=== PATIENT | male | born 1940 | race Caucasian/White ===

== ENCOUNTER 2021-08-01 21:40 | Inpatient (IN) | payer OTHER ==
[2021-08-01 22:31] LABS: Urine Blood Negative (Negative); Urine Glucose Negative (Negative); Urine Protein Negative (Negative); Urine Specific Gravity 1.015 (1.005-1.030); Urine pH 5.5 (5.0-7.0)
[2021-08-01] MEDS ORDERED: AZITHROMYCIN 500 MG INJ IVPB ONE (22:39)
[2021-08-01] MEDS ORDERED: ACETAMINOPHEN 500 MG TAB ONE (22:39)
[2021-08-01] MEDS ORDERED: NA CHLORIDE 0.9% 1,000 ML ONE (22:39)
[2021-08-01] MEDS ORDERED: NA CHLORIDE 0.9% 250 ML ONE (22:39)
[2021-08-01] MEDS ORDERED: PIPERACIL/TAZO 3.375 GM VIAL IV ONE (22:40)
[2021-08-01] MEDS ORDERED: NA CHLORIDE 0.9% 100 ML IV ONE (22:40)
[2021-08-01 23:10] LABS: Absolute Lymphocytes (CBC) 1.1 K/uL (0.7-4.9); MPV 7.8 fL (7.6-11.3); RBC Red Blood Cell Count 3.78 M/uL (4.33-5.43)
[2021-08-01 23:21] LABS: Protime INR 1.08
[2021-08-01 23:34] LABS: ALT/SGPT 35 U/L (12-78); AST/SGOT 28 U/L (15-37); Albumin 3.5 g/dL (3.4-5.0); Alkaline Phosphatase 72 U/L (45-117); BUN Blood Urea Nitrogen 35 mg/dL (7-18); Bicarbonate 21 mmol/L (21-32); Bilirubin Direct 0.2 mg/dL (0-0.2); Bilirubin Total 0.5 mg/dL (0.2-1.0); Creatine Phosphokinase 78 U/L (39-308); Glomerular Filtration Rate 30 ml/min (=/>90); Glucose Level 153 mg/dL (74-106); Magnesium 1.8 mg/dL (1.8-2.4); NT PRO-BNP 140 pg/mL (<450); Potassium 4.6 mmol/L (3.5-5.1); Protein, Total 7.2 g/dL (6.4-8.2); Sodium Level 139 mmol/L (136-145); Troponin High Sensitivity 35.6 pg/mL (<58.9)
[2021-08-01 23:40] LABS: CKMB Creatine Kinase MB < 1.0 ng/mL (1.0-3.6)
--- NOTE | 2021-08-02 00:19 | EDPHYS ---
Physician Documentation [facility] Name: James Langley Age: 81 yrs Sex: Male : 1940 Arrival Date: 08/01/2021 Time: 21:41 Bed 9 Private MD: ED Physician Richard Leonardo HPI: 08/02 00:10 This 81 yrs old Male presents to ER via EMS with complaints of Weakness. kylah 00:10 The patient presents to the emergency department with weakness of the entire body, kylah generalized weakness, that is moderate. Onset: The symptoms/episode began/occurred 2 day(s) ago. Context: occurred at home. Associated signs and symptoms: Pertinent positives: chills, near-syncope, weakness. Severity of symptoms: At their worst the symptoms were mild in the emergency department the symptoms are unchanged. Patient's baseline: Neuro: alert and fully oriented. Current symptoms: confusion. The patient has experienced similar episodes in the past, several times. Historical: - Allergies: 08/01 21:51 No Known Allergies; tw5 - Immunization history:: Flu vaccine is up to date. - Social history:: Smoking status: Patient/guardian denies using tobacco, the patient reports quitting approximately 15 years ago. - Family history:: not pertinent. ROS: 08/02 00:10 Eyes: Negative for injury, pain, redness, and discharge, ENT: Negative for injury, kylah pain, and discharge, Neck: Negative for injury, pain, and swelling, Cardiovascular: Negative for chest pain, palpitations, and edema, Abdomen/GI: Negative for abdominal pain, nausea, vomiting, diarrhea, and constipation, Back: Negative for injury and pain, : Negative for injury, bleeding, discharge, and swelling, MS/Extremity: Negative for injury and deformity, Skin: Negative for injury, rash, and discoloration, Psych: Negative for depression, anxiety, suicide ideation, homicidal ideation, and hallucinations, Allergy/Immunology: Negative for hives, rash, and allergies, Endocrine: Negative for neck swelling, polydipsia, polyuria, polyphagia, and marked weight changes, Hematologic/Lymphatic: Negative for swollen nodes, abnormal bleeding, and unusual bruising. Constitutional: Positive for chills, fatigue, fever, malaise, poor PO intake. Respiratory: Positive for cough, shortness of breath. Neuro: Positive for near syncope, weakness. Exam: 00:10 Head/Face: Normocephalic, atraumatic. Eyes: Pupils equal round and reactive to light, kylah extra-ocular motions intact. Lids and lashes normal. Conjunctiva and sclera are non-icteric and not injected. Cornea within normal limits. Periorbital areas with no swelling, redness, or edema. ENT: Nares patent. No nasal discharge, no septal abnormalities noted. Tympanic membranes are normal and external auditory canals are clear. Oropharynx with no redness, swelling, or masses, exudates, or evidence of obstruction, uvula midline. Mucous membranes moist. Neck: Trachea midline, no thyromegaly or masses palpated, and no cervical lymphadenopathy. Supple, full range of motion without nuchal rigidity, or vertebral point tenderness. No Meningismus. Chest/axilla: Normal chest wall appearance and motion. Nontender with no deformity. No lesions are appreciated. Cardiovascular: Regular rate and rhythm with a normal S1 and S2. No gallops, murmurs, or rubs. Normal PMI, no JVD. No pulse deficits. Abdomen/GI: Soft, non-tender, with normal bowel sounds. No distension or tympany. No guarding or rebound. No evidence of tenderness throughout. Back: No spinal tenderness. No costovertebral tenderness. Full range of motion. Male : Normal genitalia with no discharge or lesions. Skin: Warm, dry with normal turgor. Normal color with no rashes, no lesions, and no evidence of cellulitis. MS/ Extremity: Pulses equal, no cyanosis. Neurovascular intact. Full, normal range of motion. Psych: Awake, alert, with orientation to person, place and time. Behavior, mood, and affect are within normal limits. 00:10 Constitutional: The patient appears febrile. 00:10 ECG was reviewed by the Attending Physician. 00:10 Respiratory: the patient does not display signs of respiratory distress, Respirations: no acute changes, Breath sounds: decreased breath sounds, that are mild, rhonchi, that are mild, Respiratory rate: 20 Vital Signs: 08/01 21:46 Pulse 114; Resp 20; Temp 99.4(O); Pulse Ox 97% on R/A; Weight 81.65 kg; Height 6 ft. 0 tw5 in. (182.88 cm); Pain 6/10; 22:01 BP 187 / 59; jb4 22:20 Temp 102.0(TE); [facility] 08/02 00:37 BP 136 / 76; Pulse 103; Resp 20; Temp 100.2(TE); Pulse Ox 100% on R/A; [facility] 08/01 21:46 Body Mass Index 24.41 (81.65 kg, 182.88 cm) tw5 MDM: 08/01 22:15 Patient medically screened. [facility] 08/02 00:14 Data reviewed: vital signs, nurses notes, lab test result(s), EKG, radiologic studies, [facility] CT scan, plain films. Data interpreted: front desk monitor: rate is 114 beats/min. Test interpretation: by ED physician or midlevel provider: ECG, plain radiologic studies. Counseling: I had a detailed discussion with the patient and/or guardian regarding: the historical points, exam findings, and any diagnostic results supporting the discharge/admit diagnosis, lab results, radiology results, the need for further work-up and treatment in the hospital. 08/01 22:18 Order name: Basic Metabolic Panel; Complete Time: 00:02 [facility] 08/01 21:18 Order name: CBC with Diff; Complete Time: 00:02 [facility] 08/01 21:18 Order name: LFT's; Complete Time: 00:02 [facility] 08/01 21:18 Order name: Magnesium; Complete Time: 00:02 [facility] 08/01 21:18 Order name: NT PRO-BNP; Complete Time: 00:02 [facility] 08/01 21:18 Order name: PT-INR; Complete Time: 00:02 [facility] 08/01 21:18 Order name: Troponin HS; Complete Time: 00:02 [facility] 08/01 21:18 Order name: Blood Culture Adult (2) [facility] 08/01 21:18 Order name: Lactate; Complete Time: 00:02 [facility] 08/01 21:18 Order name: Procalcitonin; Complete Time: 00:02 [facility] 08/01 21:18 Order name: Urine Culture [facility] 08/01 21:18 Order name: Flu; Complete Time: 00:02 [facility] 08/01 21:18 Order name: SARS-COV-2 RT PCR (Document "Date of Onset" if Symptomatic); Complete Time: [facility] 00:04 08/01 21:18 Order name: CK; Complete Time: 00:02 [facility] 05/21 22:18 Order name: XRAY Chest (1 view) [facility] 08/01 22:18 Order name: EKG; Complete Time: 22:20 [facility] 08/01 22:18 Order name: Cardiac monitoring; Complete Time: 23:09 [facility] 08/01 22:18 Order name: EKG - Nurse/Tech; Complete Time: 00:08 [facility] 08/01 22:18 Order name: IV Saline Lock; Complete Time: 23: [facility] 08/01 22:18 Order name: Labs collected and sent; Complete Time: 23: [facility] 08/01 22:18 Order name: O2 Per Protocol; Complete Time: 23: [facility] 08/01 22:18 Order name: O2 Sat Monitoring; Complete Time: 23: [facility] 08/01 22:18 Order name: Ckmb; Complete Time: 00:02 [facility] 08/01 22:32 Order name: Urine Dipstick-Ancillary; Complete Time: 00:02 EDMS 08/02 00:10 Order name: CT Traumagram (Head C Spine CAP wo con) [facility] 08/01 22:18 Order name: Urine Dipstick-Ancillary (obtain specimen); Complete Time: 22:31 [facility] EC:10 Rate is 108 beats/min. Rhythm is regular. QRS [place] is Normal. MA interval is normal. [facility] QRS interval is normal. QT interval is normal. No Q waves. T waves are Normal. No ST changes noted. Clinical impression: NSR w/ Non-specific ST/T Changes and No evidence of ischemia. Interpreted by me. Reviewed by me. Administered Medications: 08/01 23:08 Drug: NS 0.9% 1000 ml Route: IV; Rate: 1 bolus; Site: right antecubital; jb4 08/02 00:00 Follow up: Response: No adverse reaction; IV Status: Completed infusion; IV Intake: kylah 1000ml 08/01 23:08 Drug: Tylenol 1000 mg Route: PO; jb4 08/02 00:34 Follow up: Response: No adverse reaction; Marked relief of symptoms; Temperature is kylah decreased 08/01 23:25 Drug: Zosyn (piperacillin-tazobactam) 3.375 grams Route: IVPB; Infused Over: 60 mins; jb4 Site: right antecubital; 08/02 00:25 Follow up: Response: No adverse reaction; IV Status: Completed infusion; IV Intake: kylah 100ml 08/01 23:25 Drug: Zithromax (azithromycin) 500 mg Route: IVPB; Infused Over: 1 hrs; Site: left jb4 antecubital; 08/02 00:25 Follow up: Response: No adverse reaction; IV Status: Completed infusion; IV Intake: kylah 250ml 01:13 Drug: NS 0.9% 1000 ml Route: IV; Rate: 125 ml/hr; Site: right antecubital; jb4 Disposition Summary: 08/02/21 00:18 Hospitalization Ordered Hospitalization Status: Inpatient Admission kylah Provider: Brennan Gonzalez cha Location: Telemetry/MedSurg (Inpatient) kylah Condition: Fair kylah Problem: new kylah Symptoms: have improved kylah Bed/Room Type: Standard [facility] Room Assignment: 229(08/02/21 01:30) mw Diagnosis - Fever, unspecified kylah - Pneumonia, unspecified organism kylah - Weakness kylah - Acute kidney failure, unspecified kylah - Fall on same level, unspecified kylah - Elevated white blood cell count kylah Forms: - Medication Reconciliation Form kylah - SBAR form kylah Signatures: Dispatcher [employer] EDPrincess Chou RN RN Richard Guidry MD MD cha Bryson, James, RN RN Lilo Jeffrey tw5 Corrections: (The following items were deleted from the chart) 01: 00:18 kylah archuleta
--- NOTE | 2021-08-02 00:19 | ER ---
Nurse's Notes [facility] Name: James Langley Age: 81 yrs Sex: Male : 1940 Arrival Date: 08/01/2021 Time: 21:41 Bed 9 Private MD: Diagnosis: Fever, unspecified;Pneumonia, unspecified organism;Weakness;Acute kidney failure, unspecified;Fall on same level, unspecified;Elevated white blood cell count Presentation: 08/01 21:42 Chief complaint: EMS states: "They found him at home on the floor. He is visually tw5 impaired and hearing impaired. He did have a fever of 102. He is a frequent juan. Usually family is able to get him up and today they were unable to get him up. 21:42 Acuity: ROSETTE 2 tw5 21:46 Coronavirus screen: Vaccine status: Patient reports receiving the 2nd dose of the covid tw5 vaccine. Moderna. Ebola Screen: Patient negative for fever greater than or equal to 101.5 degrees Fahrenheit, and additional compatible Ebola Virus Disease symptoms Patient denies exposure to infectious person. Patient denies travel to an Ebola-affected area in the 21 days before illness onset. Initial Sepsis Screen: Does the patient meet any 2 criteria? Altered Mental Status. HR > 90 bpm. Does the patient have a suspected source of infection? No. Patient's initial sepsis screen is negative. Risk Assessment: Do you want to hurt yourself or someone else? Unable to obtain. Onset of symptoms is unknown. 21:46 Method Of Arrival: Wheelchair tw5 21:46 Method Of Arrival: EMS tw5 Triage Assessment: 21:51 General: Appears unkempt, Behavior is agitated, restless, uncooperative. Pain: tw5 Complains of pain in bilateral knees- according to family Pain currently is 6 out of 10 on a pain scale. Historical: - Allergies: 21:51 No Known Allergies; tw5 - Immunization history:: Flu vaccine is up to date. - Social history:: Smoking status: Patient/guardian denies using tobacco, the patient reports quitting approximately 15 years ago. - Family history:: not pertinent. Screenin:25 Abuse screen: Denies threats or abuse. Nutritional screening: No deficits noted. jb4 Tuberculosis screening: No symptoms or risk factors identified. Fall Risk None identified. Assessment: 22:25 General: Appears in no apparent distress. uncomfortable, ill, Behavior is calm, jb4 cooperative. Pain: Unable to use pain scale. FLACC scale score is 0 out of 10. Neuro: Level of Consciousness is awake, alert, Oriented to Pt unable to answer due to impaired hearing.. Cardiovascular: Patient's skin is warm and dry. Respiratory: Airway is patent Respiratory effort is even, unlabored, Respiratory pattern is regular, symmetrical, Sputum is thick, green purulent. GI: No signs and/or symptoms were reported involving the gastrointestinal system. : No signs and/or symptoms were reported regarding the genitourinary system. EENT: No signs and/or symptoms were reported regarding the EENT system. Derm: Skin is intact, Skin is pink, warm \\T\\ dry. Vital Signs: 21:46 Pulse 114; Resp 20; Temp 99.4(O); Pulse Ox 97% on R/A; Weight 81.65 kg; Height 6 ft. 0 tw5 in. (182.88 cm); Pain 6/10; 22:01 BP 187 / 59; jb4 22:20 Temp 102.0(TE); jb4 08/02 00:37 BP 136 / 76; Pulse 103; Resp 20; Temp 100.2(TE); Pulse Ox 100% on R/A; jb4 08/01 21:46 Body Mass Index 24.41 (81.65 kg, 182.88 cm) tw5 ED Course: 08/01 21:41 Patient arrived in ED. tw5 21:44 Triage completed. tw5 21:51 Arm band placed on right wrist. Patient patient taken to restroom by TECH. Patient was tw5 repeatedly attempting to get out of wheel chair and relieve himself in the triage room. 22:01 Srikanth Santos, IVAN is Primary Nurse. [facility] 22:15 Richard Leonardo MD is Attending Physician. [facility] 22:25 Patient has correct armband on for positive identification. Bed in low position. Call jb4 light in reach. Side rails up X 1. 22:31 Urine Culture Sent. mb7 22:37 XRAY Chest (1 view) In Process Unspecified. EDMS 22:55 Inserted saline lock: 18 gauge in right antecubital area, using aseptic technique. 4 Blood collected. 23:10 Initial lab(s) drawn, by nc, sent to lab. First set of blood cultures drawn by me, jb4 Second set of blood cultures drawn by me. 08/02 00:15 Brennan Gonzalez is Hospitalizing Provider. kylah 00:39 No provider procedures requiring assistance completed. Patient admitted, IV remains in jb4 place. 01:14 Primary Nurse role handed off by Srikanth Santos, RN tw5 01:14 Lilo Park is Primary Nurse. tw5 02:14 Blood Culture Adult (2) Sent. tw5 Administered Medications: 08/01 23:08 Drug: NS 0.9% 1000 ml Route: IV; Rate: 1 bolus; Site: right antecubital; [facility] 08/02 00:00 Follow up: Response: No adverse reaction; IV Status: Completed infusion; IV Intake: kylah 1000ml 08/01 23:08 Drug: Tylenol 1000 mg Route: PO; 4 08/02 00:34 Follow up: Response: No adverse reaction; Marked relief of symptoms; Temperature is kylah decreased 08/01 23:25 Drug: Zosyn (piperacillin-tazobactam) 3.375 grams Route: IVPB; Infused Over: 60 mins; [facility] Site: right antecubital; 08/02 00:25 Follow up: Response: No adverse reaction; IV Status: Completed infusion; IV Intake: kylah 100ml 08/01 23:25 Drug: Zithromax (azithromycin) 500 mg Route: IVPB; Infused Over: 1 hrs; Site: left jb4 antecubital; 08/02 00:25 Follow up: Response: No adverse reaction; IV Status: Completed infusion; IV Intake: kylah 250ml 01:13 Drug: NS 0.9% 1000 ml Route: IV; Rate: 125 ml/hr; Site: right antecubital; [facility] Medication: 08/01 22:25 VIS not applicable for this client. jb4 Intake: 08/02 00:00 IV: 1000ml; Total: 1000ml. kylah 00:25 IV: 250ml; Total: 1250ml. kylah 00:25 IV: 100ml; Total: 1350ml. kylah Outcome: 00:18 Decision to Hospitalize by Provider. kylah 01:42 Admitted to Med/surg Report called to attempted to call report was informed the room tw5 has not been assigned to a nurse 01:54 Admitted to Med/surg Report called to Attempted to call report. Nurse unavailable 01:56 Admitted to Med/surg Report called to Called report Pop :56 Condition: stable 02:19 Patient left the ED. Signatures: Dispatcher [employer] EDRichard Lambert MD MD cha Bryson, James RN RN Lilo Jeffrey Ayaka Robison 7
[2021-08-02] MEDS ORDERED: NA CHLORIDE 0.9% 1,000 ML ONE (00:52)
--- NOTE | 2021-08-02 01:32 | P.HP ---
Certification for Inpatient Patient admitted to: Inpatient With expected LOS: >2 Midnights Patient will require the following post-hospital care: None Practitioner: I am a practitioner with admitting privileges, knowledge of patient current condition, hospital course, and medical plan of care. Services: Services provided to patient in accordance with Admission requirements found in Title 42 Section 412.3 of the Code of Federal Regulations Patient History Date of Service: 08/02/21 Reason for admission: Sepsis, PNA History of Present Illness: Patient is an 81-year-old male with hypertension and COPD who presented to the ED via EMS who found him at home on the floor after a fall with a fever of 102F. He is visually impaired and hearing impaired. Family states he falls frequently but were unable to get him up today. Upon arrival, patient is fully alert and oriented but flagging sepsis with productive cough, tachycardia, and fever. Labs significant for WBC 18.4, creatinine 2.18, Pro-Eris 0.1. Chest x-ray negative. Traumagram pending. Upon my assessment, patient is alert and oriented but very difficult to communicate with as his hearing is severely impaired. was not at bedside and EMS did not give medical history. Patient was given Tylenol, fluids, azithromycin, and Zosyn in the ED. Will admit patient for further management. Allergies No Known Allergies Allergy (Unverified 08/02/21 01:52) Home medications list reviewed: No (not available ) - Past Medical/Surgical History Diabetic: No -: Hypertension -: COPD -: Bilateral Cataract Surgery Psychosocial/ Personal History: Patient lives at home with his . - Family History Family History: Reviewed- Non-Contributory - Family History Father History Unknown: Yes - Social History Smoking Status: Former smoker Alcohol use: No CD- Drugs: No Caffeine use: Yes Place of Residence: Home Review of Systems is unable to be obtained Physical Examination - Physical Exam General: Alert, In no apparent distress HEENT: Atraumatic, PERRLA, EOMI, Sclerae nonicteric Neck: Supple, 2+ carotid pulse no bruit, No LAD, Without JVD or thyroid abnormality Respiratory: Diminished Cardiovascular: No edema, Regular rate/rhythm, Normal S1 S2 Gastrointestinal: Normal bowel sounds, No tenderness Musculoskeletal: No tenderness Integumentary: No rashes Neurological: Normal speech, Normal strength at 5/5 x4 extr, Normal tone, Normal affect - Studies Laboratory Data (last 24 hrs) 08/01/21 22:55: PT 11.9, INR 1.08 08/01/21 22:55: WBC 18.4 H, Hgb 11.9 L, Hct 36.0 L, Plt Count 284 08/01/21 22:55: Sodium 139, Potassium 4.6, BUN 35 H, Creatinine 2.18 H, Glucose 153 H, Magnesium 1.8, Total Bilirubin 0.5, AST 28, ALT 35, Alkaline Phosphatase 72 Microbiology Data (last 24 hrs): 08/01/21 23:00 Nasopharnyx Influenza Type A Antigen Screen - Final 08/01/21 23:00 Nasopharnyx Influenza Type B Antigen Screen - Final Assessment and Plan - Problems (Diagnosis) (1) Sepsis Current Visit: Yes Status: Acute Qualifiers: Sepsis type: sepsis due to unspecified organism Sepsis acute organ dysfunction status: with acute organ dysfunction Severe sepsis acute organ dysfunction type: acute renal failure Acute renal failure type: unspecified Severe sepsis shock status: without septic shock Qualified Code(s): A41.9 - Sepsis, unspecified organism; R65.20 - Severe sepsis without septic shock; N17.9 - Acute kidney failure, unspecified (2) Pneumonia Current Visit: Yes Status: Acute Qualifiers: Pneumonia type: due to unspecified organism Laterality: unspecified laterality Lung location: unspecified part of lung Qualified Code(s): J18.9 - Pneumonia, unspecified organism (3) JEAN PIERRE (acute kidney injury) Current Visit: Yes Status: Acute (4) Hypertension Current Visit: No Status: Chronic Qualifiers: Hypertension type: primary hypertension Qualified Code(s): I10 - Essential (primary) hypertension (5) COPD (chronic obstructive pulmonary disease) Current Visit: No Status: Chronic Qualifiers: COPD type: unspecified COPD Qualified Code(s): J44.9 - Chronic obstructive pulmonary disease, unspecified (6) Hearing impaired Current Visit: Yes Status: Chronic Qualifiers: Hearing loss type: unspecified Laterality: bilateral Qualified Code(s): H91.93 - Unspecified hearing loss, bilateral - Plan -Continue azithromycin and Zosyn for suspected pneumonia causing sepsis. blood cultures drawn -pulmonology consulted. Incentive spirometry, breathing treatments, and supplemental O2 ordered -Chest x-ray negative. CT chest pending -patient has productive cough with brownlee/green phlegm. Sputum culture ordered. -urine pending -PT ordered -hydralazine PRN BP spikes -tylenol PRN fever -JEAN PIERRE secondary to sepsis. Monitor Cr and hold nephrotoxic drugs. -Heparin for VTE ppx Discharge Plan: Home Plan to discharge in: Greater than 2 days - Advance Directives Does patient have a Living Will: No Does patient have a Durable POA for Healthcare: No - Code Status/Comfort Care Code Status Assessed: Yes (Full) Critical Care: No Time Spent Managing Pts Care (In Minutes): 70
[2021-08-02] MEDS ORDERED: ONDANSETRON 4 MG/2 ML VIAL IV PRN (02:49)
[2021-08-02] MEDS ORDERED: ALBUTEROL 2.5 MG/3 ML NEB SOL NEB PRN (02:49)
[2021-08-02] MEDS: NA CHLORIDE 0.9% 1,000 ML IV SCH ×3 (02:49→12:49)
[2021-08-02] MEDS ORDERED: ACETAMINOPHEN 500 MG TAB PO PRN (02:49)
[2021-08-02 03:23] VITALS: BMI 24.4
[2021-08-02 04:05] LABS: Absolute Lymphocytes (CBC) 2.2 K/uL (0.7-4.9); Lymphocytes % 9.5 % (15.3-44.8); MPV 7.8 fL (7.6-11.3); RBC Red Blood Cell Count 3.14 M/uL (4.33-5.43)
[2021-08-02 04:22] LABS: Albumin 2.8 g/dL (3.4-5.0); Bilirubin Total 0.5 mg/dL (0.2-1.0); Magnesium 1.7 mg/dL (1.8-2.4); Potassium 4.5 mmol/L (3.5-5.1); Protein, Total 5.9 g/dL (6.4-8.2)
[2021-08-02 04:59] LABS: ACANTHOCYTE 1+; Blood Morphology Comment NOTED (NOT SEEN); Macrocytosis 1+; Ovalocytes 1+; Platelet Estimate ADEQ
[2021-08-02 05:35] LABS: Urine Appearance Clear (Clear); Urine Bilirubin Negative (Negative); Urine Blood Negative (Negative); Urine Color Yellow (Yellow); Urine Glucose Negative (Negative); Urine Protein Negative (Negative); Urine Specific Gravity <=1.005 (1.005-1.030); Urine Urobilinogen 0.2 mg/dL (0.2-1.0); Urine pH 5.5 (5.0-7.0)
[2021-08-02 05:39] LABS: Urine Microscopic Reflex NO UMIC
[2021-08-02] MEDS: PIPER TAZO 3.375 GM in NA CHLORIDE 0.9% 100 ML IV SCH ×2 (08:44→17:37)
[2021-08-02] MEDS: HEPARIN 5000 UNIT/ML 1 ML VIAL SQ SCH ×2 (08:46→17:38)
[2021-08-02] MEDS: AZITHROMYCIN IV 500 MG in NA CHLORIDE 0.9% 250 ML IVPB SCH (11:38)
--- NOTE | 2021-08-02 13:18 | P.PN ---
Date of Service: 08/02/21 Patient seen and examined. He is more awake and interactive and has no idea why he is in the hospital. He is currently hypertensive He had a fever episode in the ED yesterday. Leukocytosis is worse from yesterday. Patient seen sitting up in bed and eating. Diagnosis Sepsis Pneumonia Acute renal failure. Plan: Continue current IV antibiotics. Follow cultures. IV hydration Monitor renal function. Nephrology consult.
[2021-08-03] MEDS: PIPER TAZO 3.375 GM in NA CHLORIDE 0.9% 100 ML IV SCH ×3 (00:44→17:22)
[2021-08-03] MEDS: HEPARIN 5000 UNIT/ML 1 ML VIAL SQ SCH ×3 (00:44→17:22)
[2021-08-03] MEDS: NA CHLORIDE 0.9% 1,000 ML IV SCH ×3 (00:45→18:49)
[2021-08-03 04:40] LABS: Absolute Lymphocytes (CBC) 1.6 K/uL (0.7-4.9); Hematocrit 27.3 % (39.6-49.0); Lymphocytes % 16.8 % (15.3-44.8); MPV 7.9 fL (7.6-11.3); RBC Red Blood Cell Count 2.92 M/uL (4.33-5.43)
[2021-08-03 05:25] LABS: Albumin 2.6 g/dL (3.4-5.0); Bilirubin Total 1.2 mg/dL (0.2-1.0); Magnesium 1.9 mg/dL (1.8-2.4); Potassium 3.7 mmol/L (3.5-5.1); Protein, Total 5.7 g/dL (6.4-8.2)
[2021-08-03] MEDS: AZITHROMYCIN IV 500 MG in NA CHLORIDE 0.9% 250 ML IVPB SCH (08:47)
[2021-08-03] MEDS: HYDRALAZINE HCL 20 MG/ML VIAL IV PRN (08:47)
--- NOTE | 2021-08-03 10:48 | RAD REPORT ---
EXAM DESCRIPTION: US - Liver Only - 08/03/2021 10:12 am CLINICAL HISTORY: Elevated LFT Pain and swelling COMPARISON: No comparisons FINDINGS: The liver demonstrates diffuse fatty infiltration.No focal liver lesion or intrahepatic bi liary dilatation.No evidence of portal vein thrombosis. There is a large stone in the gallbladder. IMPRESSION: Fatty liver. Cholelithiasis.
--- NOTE | 2021-08-03 11:27 | EKG ---
Test Date: 2021-08-02 Test Time: 00:02:27 Production Statistical Clerk: CAMERON MEASUREMENT RESULTS: Intervals: Rate: 108 DE: 200 QRSD: 82 QT: 314 QTc: 420 Hendrix: P: 84 DE: 200 QRS: 82 T: 78 INTERPRETIVE STATEMENTS: Sinus tachycardia Otherwise normal ECG No previous ECG available for comparison Electronically Signed On 08-03-21 11:23:38 CDT by Tomer Farah
--- NOTE | 2021-08-03 11:37 | RAD REPORT ---
EXAM DESCRIPTION: RAD - Chest Single View - 08/01/2021 10:36 pm CLINICAL HISTORY: COUGH COMPARISON: None. FINDINGS: Single frontal radiograph view of the chest. Cardiomediastinal silhouette: Atherosclerotic calcification of thoracic aorta. Heart is not enlarged. Lungs: No consolidation, pneumothorax, or pleural effusion. Elevation of the right hemidiaphragm. Bones: Endplate spondylosis of the spine. Degenerative change of the shoulders. Upper abdomen: No abnormality identified. IMPRESSION: 1. No acute pulmonary process identified. Electronically signed by: Luis Felipe Duncan 08/01/2021 10:54 PM CDT Due to temporary technical issues with the PACS/Fluency reporting system, reports are being signed by the in house radiologist without review as a courtesy to ensure prompt reporting. The interpreting r adiologist is fully responsible for the content of the report.
--- NOTE | 2021-08-03 12:49 | RAD REPORT ---
EXAM DESCRIPTION: CT - Head C Spine Cap Wo Con - 08/02/2021 5:52 am CLINICAL HISTORY: Fall TECHNIQUE: Axial computed tomography images of the head/brain and cervical spine without intravenous contrast. Sagittal and coronal reformatted images were created and reviewed. This CT exam was pe rformed using one or more of the following dose reduction techniques: automated exposure control, a djustment of the mA and/or kV according to patient size, and/or use of iterative reconstruction techn ique. COMPARISON: No relevant prior studies available. FINDINGS: Brain: There is mild cerebral atrophy. Minimal bilateral periventricular and subcortic al white matter hypodensity which is nonspecific and can be seen in the clinical setting of chronic m icrovascular angiopathy. No hemorrhage. Ventricles: Unremarkable. No ventriculomegaly. Skull: See below. Sinuses: Minimal pansinus mucosal thickening. Mastoid air cells: Unremarkable as visualized. No mastoid effusion. Vertebrae: Loss of normal cervical lordosis. Grade 1 anterolisthesis of C3 on C4 and gentle kyphosi s centered at C5. No acute fracture or subluxation. Discs/spinal canal/neural foramina: Moderate to severe multilevel degenerative changes. No critical canal stenosis. Fusion of the left C4-C5 facet articulation. Soft tissues: Unremarkable. Vasculature: There is atherosclerotic disease of the internal carotid arteries bilaterally. Nasal cavity/septum: Bilateral nasal bone fracture deformities which appear fairly well corticated suggesting remote trauma. No acute fracture. * A single impression for all exams can be found at the end of this report EXAM DESCRIPTION: CT Chest, Abdomen and Pelvis Without Intravenous Contrast CLINICAL HISTORY: Fall TECHNIQUE: Axial computed tomography images of the chest, abdomen and pelvis without intravenous con trast. Sagittal and coronal reformatted images were created and reviewed. This CT exam was perfor med using one or more of the following dose reduction techniques: automated exposure control, adjus tment of the mA and/or kV according to patient size, and/or use of iterative reconstruction technique . COMPARISON: No relevant prior studies available. FINDINGS: CHEST: Lungs: Moderate centrilobular emphysema with an upper lobe predominance. Scattered patchy groundgla ss opacities within the lungs bilaterally. Pleural space: Unremarkable. No significant effusion. No pneumothorax. Heart: Coronary artery calcification. No significant pericardial effusion. ABDOMEN: Liver: Unremarkable. Gallbladder and bile ducts: Gallstones within a contracted gallbladder. No ductal dilation. Pancreas: Moderate pancreatic parenchymal atrophy. No ductal dilation. Spleen: Unremarkable. No splenomegaly. Adrenals: Unremarkable. No mass. Kidneys and ureters: Lobulated renal contour bilaterally. Bilateral cysts, the largest at the upper pole on the right measuring 3.2 cm. No follow-up imaging is necessary. No obstructing stones. Stomach and bowel: Moderate stool. Colonic diverticula without adjacent inflammatory change. No o bstruction. No mucosal thickening. PELVIS: Appendix: Normal caliber appendix. No findings to suggest acute appendicitis. Bladder: Mild circumferential urinary bladder wall thickening. No stones. Reproductive: The prostate is mildly enlarged. CHEST, ABDOMEN and PELVIS: Intraperitoneal space: Unremarkable. No significant fluid collection. No free air. Bones/joints: Multilevel spondylosis. No acute fracture. No dislocation. Soft tissues: 3.2 x 1.5 x 2.5 cm well-circumscribed cyst subjacent to the skin at the left anterior chest wall at the level of the 5th 6th costal cartilage most compatible with a sebaceous cyst. Sma ll bilateral fat-containing inguinal hernias. Vasculature: Moderate to severe atherosclerotic disease. No aortic aneurysm. Lymph nodes: Unremarkable. No enlarged lymph nodes. * A single impression for all exams can be found at the end of this report IMPRESSION: CT Head and Cervical Spine Without Intravenous Contrast: 1. No acute intracranial or extra-axial abnormality. 2. No cervical spine injury. 3. Other findings as above. CT Chest, Abdomen and Pelvis Without Intravenous Contrast: 1. Patchy multifocal pulmonary opacities bilaterally (atelectasis and/or infiltrate). Superimposed contusion cannot be entirely excluded. 2. Allowing for unenhanced technique, no evidence for hollow or solid organ injury. 3. Mild circumferential urinary bladder wall thickening which may be related to degree of distentio n in combination with bladder outlet obstruction. Please correlate clinically for cystitis. 4. Other findings as above. Electronically signed by: Dmitriy Jacobsen MD 08/02/2021 3:40 AM CDT Due to temporary technical issues with the PACS/Fluency reporting system, reports are being signed by the in house radiologist without review as a courtesy to ensure prompt reporting. The interpreting r adiologist is fully responsible for the content of the report.
--- NOTE | 2021-08-03 17:14 | P.PN ---
Subjective Date of Service: 08/03/21 Chief Complaint: Sepsis, PNA Patient reports feeling much better today and desires to go home. He is eating well. No fever. He denies shortness of breath. Physical Examination - Vital Signs Temperature: 99.6 F Blood Pressure: 160/90 Pulse: 75 Respirations: 20 Pulse Ox (%): 98 - Physical Exam General: Alert, In no apparent distress, Oriented x3 HEENT: Mucous membr. moist/pink, Sclerae nonicteric Neck: JVD not distended Respiratory: Clear to auscultation bilaterally, Normal air movement Cardiovascular: No edema, Regular rate/rhythm, Normal S1 S2 Gastrointestinal: Soft and benign, Non-distended, No tenderness Musculoskeletal: No swelling Neurological: Normal speech, Normal strength at 5/5 x4 extr Assessment And Plan - Current Problems (Diagnosis) (1) Pneumonia Current Visit: Yes Status: Acute Qualifiers: Pneumonia type: due to unspecified organism Laterality: unspecified laterality Lung location: unspecified part of lung Qualified Code(s): J18.9 - Pneumonia, unspecified organism (2) Sepsis Current Visit: Yes Status: Acute Qualifiers: Sepsis type: sepsis due to unspecified organism Sepsis acute organ dysfunction status: with acute organ dysfunction Severe sepsis acute organ dysfunction type: acute renal failure Acute renal failure type: unspecified Severe sepsis shock status: without septic shock Qualified Code(s): A41.9 - Sepsis, unspecified organism; R65.20 - Severe sepsis without septic shock; N17.9 - Acute kidney failure, unspecified (3) COPD (chronic obstructive pulmonary disease) Current Visit: No Status: Chronic Qualifiers: COPD type: unspecified COPD Qualified Code(s): J44.9 - Chronic obstructive pulmonary disease, unspecified (4) Hypertension Current Visit: No Status: Chronic Qualifiers: Hypertension type: primary hypertension Qualified Code(s): I10 - Essential (primary) hypertension (5) Elevated LFTs Current Visit: Yes Status: Acute - Plan Patient has clinically improved. Sepsis resolved. Severe leukocytosis resolved. Liver enzymes elevated. This could be related to sepsis in the context of fatty liver. Liver ultrasound done today shows large gallstone, no choledocholithiasis, no CBD dilatation. No evidence of cholecystitis. Blood cultures: No growth to date Urine culture demonstrating mixed growth. Continue IV Zosyn. Change Zithromax to Levaquin. Bronchodilators for COPD IV hydration Monitor LFT. Obtain MRCP if liver enzymes do not trend down.
[2021-08-03] MEDS: Levofloxacin 750mg IV 750 MG/150 ML BAG IV SCH (17:56)
[2021-08-04] MEDS: PIPER TAZO 3.375 GM in NA CHLORIDE 0.9% 100 ML IV SCH ×3 (01:20→17:28)
[2021-08-04] MEDS: HEPARIN 5000 UNIT/ML 1 ML VIAL SQ SCH ×3 (01:20→17:27)
[2021-08-04] MEDS: HYDRALAZINE HCL 20 MG/ML VIAL IV PRN ×3 (03:09→17:27)
--- NOTE | 2021-08-04 03:16 | CON ---
Date of Consultation: 08/03/2021 Chief Complaint: Acute on chronic kidney injury. History Of Present Illness: The patient is an 81-year-old man with history of hypertension and COPD. He presented to the emergency department, was brought by EMS from home. He was found to have fever up to 102. EMS found him at home on the floor and temperature was up to 102. He is visually impair ed and has hearing impairment. The patient states that he has frequent falls recently and they were not able to get him up and called EMS. On arrival to the emergency room, the patient was oriented, a lthough he had productive cough, tachycardia, fever. White count was up to 18.4, creatinine 2.18. C hest x-ray did not show congestive heart failure. The patient was admitted to the hospital and he wa s found to have elevated liver function tests. Renal function has declined and nephrology consultati on is requested for acute on chronic kidney injury. The patient was started broad-spectrum antibioti cs in the emergency room and he is on azithromycin, Zosyn as well. He received IV fluids for volume resuscitation and acute kidney injury treatment. Review of Systems: The patient cannot provide review of systems. He is hard of hearing, has hearing impairment. Past Medical History: Hypertension, COPD, bilateral cataract surgery, chronic kidney stage III. Family History: No kidney disease. Social History: Denies tobacco, alcohol, or illicit drugs. Physical Examination: General: The patient is awake, follows commands. Eyes: Anicteric sclerae. EOMI. Ears, Nose, and Throat: Oral mucosa moist. No pallor. Neck: Supple. No bruits. Lungs: Diminished breath sounds at the bases. Heart: S1, S2. Abdomen: Soft, benign. Extremities: Slight edema. Laboratory Data: On arrival to the hospital, BUN was 35, creatinine level 2.18, glucose 153, magnesi um 1.8. Bilirubin is . WBC 18.4, hemoglobin 11.9, platelet count 284,000. Today, the lab work showed elevated liver function test and ALT of . Sodium 144, potassium 3.7, chloride 118, CO2 of 21, BUN 18, creatinine level 1.66, glucose 124. AST 922, ALT 123, total bilirubin 1.2. Impression And Plan: 1.The patient has history of chronic kidney disease stage III. He developed acute on chronic kidney injury. Renal function somewhat improved after the patient received IV fluids. The patient present ed with hypotension and high-grade fever. Continue broad-spectrum antibiotics. Rule out bacteremia and urinary tract infection. The patient has history of chronic kidney. Previously done renal ultra sound did not show obstructive uropathy. monitor blood pressure. Adjust medication. 2.Elevated liver function tests. Per primary team, the patient underwent ultrasound of the right up per quadrant. Blood pressure is elevated today. Adjust medication for blood pressure control. EB/MODL Voice ID: [id number] Report ID: [id number]
[2021-08-04] MEDS: NA CHLORIDE 0.9% 1,000 ML IV SCH ×3 (04:49→13:03)
[2021-08-04 04:54] LABS: Lymphocytes % 14.5 % (15.3-44.8); MPV 7.9 fL (7.6-11.3); RBC Red Blood Cell Count 3.02 M/uL (4.33-5.43)
[2021-08-04 04:59] LABS: Protime INR 1.34
[2021-08-04 05:47] LABS: Albumin 2.5 g/dL (3.4-5.0); Bilirubin Total 1.4 mg/dL (0.2-1.0); Potassium 3.4 mmol/L (3.5-5.1); Protein, Total 5.8 g/dL (6.4-8.2)
--- NOTE | 2021-08-04 07:15 | RAD REPORT ---
EXAM DESCRIPTION: US - Renal Ultrasound-Complete - 08/04/2021 5:16 am CLINICAL HISTORY: mala COMPARISON: Renal Ultrasound-Complete dated 09/22/2016 FINDINGS: Normal in size. Renal cortical thinning is noted. The right kidney measures 10.8 cm. Two simple right renal cysts noted. The largest measuring 3.3 cm. No hydronephrosis. The left kidney measures 9.1 cm. No hydronephrosis, focal mass or perinephric fluid. The urinary bladder is incompletely distended without gross abnormality seen. IMPRESSION: No hydronephrosis. Benign right renal cysts.
--- NOTE | 2021-08-04 07:47 | P.PN ---
Date of Service: 08/04/21 Subjective: No acute events overnight, patient reports feeling slightly better each day Asking about going home, but appears to have significantly labored breathing ROS: 10 point ROS as noted above, otherwise negative Physical exam GEN: Alert, oriented HEENT: Normal conjunctiva, sclera anicteric CV: Regular rate and rhythm, no edema Pulm: moderately labored respirations, b/l wheeze ABD: Soft, nontender, nondistended MSK: No joint tenderness Neuro: Normal speech, normal affect Problem List Acute hypoxemic respiratory failure secondary to pneumonia, with sepsis Acute on chronic COPD exacerbation JEAN PIERRE, multifactorial, dehydrated and sepsis/ATN Hypertension Elevated LFTs Elevated CPK, possible Rhabdomyolysis sepsis resolved breathing is improving, but still moderately short of breath / labored r espirations continue antibiotics, bronchodilators cultures without growth unclear etiology of elevated LFTs, possibly due to antibiotics, improving liver U/S: +gallstone, but no other signs of obstruction. unclear etiology of elevated CPK level, seems to delayed from fall prior to admission nephrology following, increased fluids Code: full Dispo: home, ~2 days Time Spent Managing Pts Care (In Minutes): 35
[2021-08-04] MEDS: ALBUTEROL 2.5 MG/3 ML NEB SOL NEB PRN ×2 (10:00→20:35)
[2021-08-04] MEDS ORDERED: NA CHLORIDE 0.9% 1,000 ML IV SCH (12:21)
--- NOTE | 2021-08-04 14:23 | RAD REPORT ---
EXAM DESCRIPTION: RAD - Chest Single View - 08/04/2021 2:13 pm CLINICAL HISTORY: COPD COMPARISON: Portable August 01 TECHNIQUE: AP portable chest image was obtained 08/04/2021 2:13 pm . FINDINGS: Chronic interstitial lung changes are present similar to comparison. No new mass or consol idations seen. A few patchy airspace opacities are present not clearly different from comparison. Hea rt and vasculature are normal. No measurable pleural effusion and no pneumothorax. No acute bony abno rmality seen. No acute aortic findings suspected. IMPRESSION: No new cardiopulmonary finding. Chest is similar to the August 01 examination.
[2021-08-04] MEDS: AMLODIPINE 10 MG TAB PO SCH (14:31)
--- NOTE | 2021-08-04 18:53 | PN ---
Date of Progress Note: 08/04/2021 Subjective: Patient was admitted to the hospital with sepsis, acute kidney injury. Sepsis was possi ble secondary to pneumonia. Patient over the night being slightly confused. Kidney function has bee n improved, but the patient had elevation in his CK. Physical Examination: General: When I saw the patient; the patient is confused. Vital Signs: The blood pressure 186/81, pulse of 78. Afebrile. Patient had good urine output of 23 00. Chest: Crackles on the right base. Heart: S1, S2. Systolic murmur. Abdomen: Soft, nontender. Extremity: No edema. Neurologic: Patient moving 4 extremities. No focality. Laboratory Data: WBC 13.7, H and H 9.7/28. Sodium 142, potassium 3.4, bicarb 17, BUN 19, creatinine 1.7, GFR of 40, calcium 8.1. CK 1029. Albumin 2.5. Urinalysis; specific gravity 1.005. Current Medications: The patient on, include: 1.Albuterol. 2.Levaquin. 3.Zosyn. 4.Hydralazine. 5.Normal saline. Assessment And Plan: 1.Acute kidney injury, normal-sized kidney 10.8/9.1. Obstructive uropathy has been ruled out, multi factorial secondary to prerenal, superimposed with toxic acute tubular necrosis secondary to the seps is, looked to me the patient especially with the presence of elevation on the CK slightly on the dry side. I am going to go ahead and increase normal saline to 100 per hour and we will follow up the pa pedro. 2.Obstructive uropathy has been ruled out. 3.Doubt to be any autoimmune disease given that the kidney function has been improved. 4.Anemia. We will send for anemia workup. 5.Non-anion gap metabolic acidosis with the presence of the anemia. We will send for serum protein electrophoresis. 6.Rhabdomyolysis. We will start the patient on hydration. We will follow up. HAYDEN/MARY Voice ID: [id number] Report ID: [id number]
[2021-08-05] MEDS: PIPER TAZO 3.375 GM in NA CHLORIDE 0.9% 100 ML IV SCH ×3 (00:15→16:42)
[2021-08-05] MEDS: NA CHLORIDE 0.9% 1,000 ML IV SCH ×2 (00:16→09:17)
[2021-08-05] MEDS: HEPARIN 5000 UNIT/ML 1 ML VIAL SQ SCH ×3 (00:16→16:42)
[2021-08-05] MEDS: HYDRALAZINE HCL 20 MG/ML VIAL IV PRN (00:20)
[2021-08-05] MEDS: ALBUTEROL 2.5 MG/3 ML NEB SOL NEB PRN (04:05)
[2021-08-05 04:30] LABS: Absolute Lymphocytes (CBC) 2.1 K/uL (0.7-4.9); Hematocrit 26.5 % (39.6-49.0); Lymphocytes % 15.1 % (15.3-44.8); MPV 7.8 fL (7.6-11.3); RBC Red Blood Cell Count 2.86 M/uL (4.33-5.43)
[2021-08-05 05:08] LABS: Albumin 2.5 g/dL (3.4-5.0); Bilirubin Total 0.9 mg/dL (0.2-1.0); Ferritin 424.7 ng/mL (26-388); Folic Acid, (Folate) 17.6 ng/mL (3.1-17.5); Phosphorus 2.5 mg/dL (2.5-4.9); Potassium 3.1 mmol/L (3.5-5.1); Protein, Total 5.7 g/dL (6.4-8.2); Thyroid Stimulating Hormone 0.296 uIU/mL (0.360-3.740); Uric Acid 2.5 mg/dL (3.5-7.2)
[2021-08-05] MEDS: predniSONE 20 MG TAB PO SCH ×2 (09:17→21:59)
[2021-08-05] MEDS: AMLODIPINE 10 MG TAB PO SCH (09:18)
[2021-08-05] MEDS: Ringers Lactate 1,000 ML IV SCH ×2 (14:42→23:00)
[2021-08-05] MEDS: Levofloxacin 750mg IV 750 MG/150 ML BAG IV SCH (16:43)
--- NOTE | 2021-08-05 17:09 | PN ---
Date of Progress Note: 08/05/2021 Subjective: The patient was admitted with acute kidney injury, altered mental status. Yesterday, th e patient started developing some elevation in his CK. Physical Examination: Vital Signs: When I saw the patient; blood pressure 177/64, pulse of 87, afebrile. The patient had good urine output of 2300, positive of 1100. Chest: Wheezing bilateral. Heart: S1, S2. Systolic murmur. Abdomen: Soft, nontender. Extremity: No edema. Macular rash on the medial aspect of both thighs. No tenderness. Neuro: Alert. No focality. Laboratory Data: Chest x-ray; mild congestion, no cardiomegaly. Sodium 141, potassium 3.1, bicarb 1 7, BUN 18, creatinine down to 1.6, GFR of 41, iron saturation 17, ALT 506, AST 272, CK 1100. Serum p rotein electrophoresis pending. PTH 79. Vitamin D still pending. Folate 17. Urinalysis negative f or infection. Current Medications: The patient on include Levaquin 750 q.48 hours, Zosyn 3.375, heparin, amlodipin e 10 mg daily, Tylenol, Zofran, prednisone normal saline 100 per hour. Assessment And Plan: 1.Acute kidney injury multifactorial secondary to prerenal, superimposed with rhabdomyolysis. Looke d to me still on the dry side. I am going to switch the fluid to LR on the same rate and we will fol low up the patient. 2.Acidosis, hyperchloremic acidosis secondary to IV fluid. I will change IV fluid. 3.Hypokalemia. We will start LR. We will supplement. 4.Rhabdomyolysis with the finding on the leg. I am going to go ahead and send for screening serolog y. Start aggressive hydration. 5.Altered mental status as by primary. 6.Hypertension, not controlled. We will start the patient on carvedilol and we will follow up the p atient. Continue amlodipine. HAYDEN/MARY Voice ID: [id number] Report ID: [id number]
[2021-08-05] MEDS ORDERED: carvediloL 12.5 MG TAB PO SCH (18:00)
--- NOTE | 2021-08-05 18:36 | P.PN ---
Date of Service: 08/05/21 Subjective: No acute events overnight, patient reports feeling slightly better each day wheezing and labored respirations. family have not brought trelegy inhaler ROS: 10 point ROS as noted above, otherwise negative Physical exam GEN: Alert, oriented HEENT: Normal conjunctiva, sclera anicteric CV: Regular rate and rhythm, no edema Pulm: moderately labored respirations, b/l wheeze ABD: Soft, nontender, nondistended Integumentary: b/l medial thighs with area of brownish reticular rash, nontender, no erythema Neuro: Normal speech, normal affect Problem List Acute hypoxemic respiratory failure secondary to pneumonia, with sepsis Acute on chronic COPD exacerbation JEAN PIERRE, multifactorial, dehydrated and sepsis/ATN Hypertension Elevated LFTs Elevated CPK, possible Rhabdomyolysis sepsis resolved breathing is improving, but still moderately short of breath / labored respirations; needs to restart trelegy continue antibiotics, bronchodilators cultures without growth unclear etiology of elevated LFTs, possibly due to antibiotics, improving liver U/S: +gallstone, but no other signs of obstruction. no abdominal pain unclear etiology of elevated CPK level, seems to delayed from fall prior to admission nephrology following, increased fluids labs improving, still short of breath, needs to restart trelegy Code: full Dispo: home, ~1 day Time Spent Managing Pts Care (In Minutes): 35
[2021-08-05 20:52] LABS: UR PROTEIN 159.9 mg/dL (<11.9); Urine Protein/Creatinine Ratio 1.62 ratio (<0.15)
[2021-08-05] MEDS ORDERED: carvediloL 25 MG TAB PO SCH (21:00)
[2021-08-05] MEDS ORDERED: ATORVASTATIN 20 MG TAB PO SCH (21:00)
[2021-08-06] MEDS: PIPER TAZO 3.375 GM in NA CHLORIDE 0.9% 100 ML IV SCH ×2 (00:22→09:13)
[2021-08-06] MEDS: Ringers Lactate 1,000 ML IV SCH ×2 (00:24→09:12)
[2021-08-06] MEDS: HEPARIN 5000 UNIT/ML 1 ML VIAL SQ SCH ×2 (00:24→09:13)
[2021-08-06] MEDS: ALBUTEROL 2.5 MG/3 ML NEB SOL NEB PRN (01:13)
[2021-08-06 03:57] LABS: Lymphocytes % 9.6 % (15.3-44.8); MPV 7.9 fL (7.6-11.3); RBC Red Blood Cell Count 2.86 M/uL (4.33-5.43)
[2021-08-06 04:38] LABS: Albumin 2.4 g/dL (3.4-5.0); Bilirubin Direct 0.4 mg/dL (0-0.2); Bilirubin Total 0.7 mg/dL (0.2-1.0); Phosphorus 2.5 mg/dL (2.5-4.9); Potassium 3.7 mmol/L (3.5-5.1); Protein, Total 5.9 g/dL (6.4-8.2)
[2021-08-06] MEDS ORDERED: carvediloL 25 MG TAB PO SCH (06:00)
[2021-08-06 07:01] LABS: Rheumatoid Factor NEG (NEG)
[2021-08-06 08:06] VITALS: BP 151/62; TEMP 98.2
[2021-08-06] MEDS ORDERED: TRELEGY ELLIPTA IH SCH (09:00)
[2021-08-06] MEDS ORDERED: DOXAZOSIN 2 MG TAB PO SCH (09:00)
[2021-08-06] MEDS: predniSONE 20 MG TAB PO SCH (09:13)
[2021-08-06] MEDS: AMLODIPINE 10 MG TAB PO SCH (09:13)
[2021-08-06] MEDS ORDERED: Ringers Lactate 1,000 ML IV SCH (11:25)
[2021-08-06 11:40] VITALS: O2SAT 100
--- NOTE | 2021-08-06 12:34 | PN ---
Date of Progress Note: 08/06/2021 Subjective: The patient was admitted with acute kidney injury secondary to prerenal. The patient adkins d also rhabdomyolysis and acidosis. The patient's after hydration kidney function has been improved significantly. The patient is more awake. Still has some wheezing. Physical Examination: Vital Signs: When I saw the patient; blood pressure 151/62, pulse of 77, afebrile. The patient had good urine output of 1300, positive of 2 L. Chest: Wheezing bilateral. Heart: S1, S2. Regular. Abdomen: Soft, nontender. Extremity: No edema. The patient had livedo reticularis on the middle aspect of both thighs, looked old discoloration. No tenderness. Neurologic: Alert. No focality. Laboratory Data: Sodium 141, potassium 3.7, bicarb 18, chloride 115, BUN 19, creatinine 1.5, GFR of 44, calcium 8, phosphorus 2.5. ALT 410, trending down. CK 710, continued to trend down. Albumin 2. 4, corrected calcium is 9.2. PC ratio 1.6. Current Medications: The patient on include Levaquin 750 every 48 hours, Zosyn, albuterol, amlodipin e 10 mg, carvedilol 25, Cardura 2 mg daily, hydralazine p.r.n., LR, Zofran, and prednisone. Assessment And Plan: 1.Acute kidney injury secondary to prerenal, continued to recover. We will continue hydration. The patient cleared from the Renal standpoint for discharge planning. 2.Hypokalemia, improving. We will continue supplement. 3.Rhabdomyolysis secondary to fall. Continued to improve. We will continue hydration. I am going to decrease IV fluid. 4.Hypokalemia. Continue supplement. 5.Chronic obstructive pulmonary disease as by primary. HAYDEN/MARY Voice ID: [id number] Report ID: [id number]
--- NOTE | 2021-08-06 14:36 | P.DS ---
Admission Date: 08/02/21 Discharge Date: 08/06/21 Disposition: AMA-LEFT AGAINST MEDICAL ADVIC Reason for Admission: Sepsis, PNA Consultations: Nephrology - Dr. Kline Procedures: Problem List Acute on chronic hypoxemic respiratory failure secondary to pneumonia, with sepsis Acute on chronic COPD exacerbation, on chronic O2 at night JEAN PIERRE, multifactorial, dehydrated and sepsis/ATN Hypertension Elevated LFTs Elevated CPK, possible Rhabdomyolysis Brief History of Present Illness: 81-year-old male with hypertension and COPD who presented to the ED via EMS who found him at home on the floor after a fall with a fever of 102F. He is visually impaired and hearing impaired. Family states he falls frequently but were unable to get him up today. Upon arrival, patient is fully alert and oriented but flagging sepsis with productive cough, tachycardia, and fever. Labs significant for WBC 18.4, creatinine 2.18, Pro-Eris 0.1. Chest x-ray negative. Traumagram pending. Upon my assessment, patient is alert and oriented but very difficult to communicate with as his hearing is severely impaired. was not at bedside and EMS did not give medical history. Micki ent was given Tylenol, fluids, azithromycin, and Zosyn in the ED. Hospital Course: Patient was continued on empiric antibiotics. Cultures did not reveal any bacterial growth. Patient had slow improvement. Hospitalization complicated by elevated LFTs, elevated CPK, and JEAN PIERRE. Unclear etiology of these. Possibly medication related. PAtient had gradual improvement. Throughout hospitalizaton, patient reported improvement in his breathing. However he continued to have some wheezing and mild labored respirations. Patient's family was contacted but unable to bring patient's eye drops and Trelegy so that he could continue these medicaion Plan was discussed with patient for potential discharge this afternoon. Patient's family member showed up afterwards, upset for unknown reason, but spoke with nurses and demanded that the patient be released at that time. Ultimately decided to leave AMA. Family did not have patient's portable oxygen, however, stated they did not live far. Prescriptions sent ot pharmacy. Vital Signs/Physical Exam: Temp Pulse Resp BP Pulse Ox 98.2 F 77 18 151/62 H 100 08/06/21 08:00 08/06/21 09:13 08/06/21 08:00 08/06/21 09:13 08/06/21 08:00 Physical exam GEN: Alert, oriented, hard of hearing HEENT: Normal conjunctiva, sclera anicteric CV: Regular rate and rhythm, no edema Pulm: mild labored respirations on 2 LNC, b/l wheeze heard diffusely ABD: Soft, nontender, nondistended Integumentary: b/l medial thighs with area of brownish reticular rash, nontender, no erythema Neuro: Normal speech, normal affect Laboratory Data at Discharge: WBC 10.9 K/uL (4.3-10.9) D 08/06/21 03:34 Hgb 9.1 g/dL (13.6-17.9) L 08/06/21 03:34 Hct 27.0 % (39.6-49.0) L 08/06/21 03:34 Plt Count 232 K/uL (152-406) 08/06/21 03:34 PT 14.8 SECONDS (9.5-12.5) H 08/04/21 04:23 INR 1.34 08/04/21 04:23 APTT 47.3 SECONDS (24.3-36.9) H 08/04/21 04:23 Sodium 141 mmol/L (136-145) 08/06/21 03:34 Potassium 3.7 mmol/L (3.5-5.1) 08/06/21 03:34 BUN 19 mg/dL (7-18) H 08/06/21 03:34 Creatinine 1.59 mg/dL (0.55-1.3) H 08/06/21 03:34 Glucose 137 mg/dL (74-106) H 08/06/21 03:34 Uric Acid 2.5 mg/dL (3.5-7.2) L 08/05/21 03:54 Phosphorus 2.5 mg/dL (2.5-4.9) 08/06/21 03:34 Magnesium 1.9 mg/dL (1.8-2.4) 08/03/21 04:16 Total Bilirubin 0.7 mg/dL (0.2-1.0) 08/06/21 03:34 AST 181 U/L (15-37) H 08/06/21 03:34 ALT 410 U/L (12-78) H* 08/06/21 03:34 Alkaline Phosphatase 104 U/L (45-117) 08/06/21 03:34 Home Medications: RX: Albuterol Sulfate [Proair Respiclick] 2 puff IH BID 08/04/21 RX: Atorvastatin Calcium [Lipitor*] 20 mg PO BEDTIME 08/04/21 RX: Brinzolamide [Azopt] 1 drop EACH EYE BID 08/04/21 RX: Carvedilol [Coreg] 25 mg PO BID 08/04/21 RX: Doxazosin [Cardura*] 1 tab PO DAILY 08/04/21 RX: Fluticasone/Umeclidin/Vilanter [Trelegy Ellipta 100-62.5-25] 1 puff IH DAILY 08/04/21 RX: Hydrocodone Bit/Acetaminophen [Hydrocodon-Acetaminophn 10-325] 1 tab PO Q8HP PRN 08/04/21 RX: Valsartan [Diovan*] 320 mg PO DAILY 08/04/21 Amox/Clavulanate [Augmentin 875-125 Tab] 875 mg PO BID 5 Days #10 tab 08/06/21 levoFLOXacin [Levaquin] 500 mg PO DAILY 5 Days #5 tab 08/06/21 predniSONE [Prednisone] 20 mg PO BID 4 Days #8 tablet 08/06/21 New Medications: Amox/Clavulanate [Augmentin 875-125 Tab] 875 mg PO BID 5 Days #10 tab levoFLOXacin [Levaquin] 500 mg PO DAILY 5 Days #5 tab predniSONE [Prednisone] 20 mg PO BID 4 Days #8 tablet Followup: Unknown,U [Primary Care Provider] - Time spent managing pt's care (in minutes): 45
[2021-08-09 00:07] LABS: Vitamin D 1,25-Dihydroxy Total 30 pg/mL (18-72); Vitamin D,1,25-OH2, D2 <8 pg/mL
[2021-08-10 22:01] LABS: Albumin, (SPE) 2.9 g/dL (3.8-4.8); Alpha-1-Globulins 0.3 g/dL (0.2-0.3); Alpha-2-Globulins 0.7 g/dL (0.5-0.9); Gamma Globulins 0.8 g/dL (0.8-1.7); INTERPRETATION REPORT
== END 2021-08-06 13:00 | disposition left against medical advice (07) | DRG 871 ==
LOC: ER 21:40 → ERHOLD 08-02 01:18 → 2ND 08-02 01:48
PROVIDERS: ADMIT Internal Medicine; ATTEND Internal Medicine
DX: A41.9 Sepsis, unspecified organism (principal); J18.9 Pneumonia, unspecified organism; J96.21 Acute and chronic respiratory failure with hypoxia; G93.41 Metabolic encephalopathy; N17.0 Acute kidney failure with tubular necrosis; J44.0 Chronic obstructive pulmonary disease with (acute) lower respiratory infection; J44.1 Chronic obstructive pulmonary disease with (acute) exacerbation; M62.82 Rhabdomyolysis; E87.2 Acidosis; R65.20 Severe sepsis without septic shock; R79.89 Other specified abnormal findings of blood chemistry; E87.6 Hypokalemia; R01.1 Cardiac murmur, unspecified; H91.93 Unspecified hearing loss, bilateral; Z53.29 Procedure and treatment not carried out because of patient's decision for other reasons; Z99.81 Dependence on supplemental oxygen; Z20.822 Contact with and (suspected) exposure to COVID-19
CPT/HCPCS: 36415; 70450; 71045; 71250; 72125; 76705; 76770; 80048; 80053; 80069; 80076; 81003; 82248; 82550; 82553; 82570; 82607; 82652; 82728; 82746; 83540; 83605; 83735; 83880; 83970; 84145; 84156; 84165; 84443; 84466; 84484; 84550; 85025; 85044; 85610; 85730; 86160; 86225; 86430; 87040; 87086; 87088; 87804; 93005; 94640; 97116; 97161; 97530; 99285; J0360; J0456; J1644; J2543; J7030; J7050; J7120; J7512; U0003